=== PATIENT | male | born 1965 | race Caucasian/White ===

== ENCOUNTER 2017-12-12 20:33 | Emergency (ER) | payer BC ==
--- NOTE | 2017-12-12 21:01 | EDPHY ---
H & P Time Seen by Provider: 12/12/17 21:01 HPI/ROS: CHIEF COMPLAINT: Dizziness and vertigo HISTORY OF PRESENT ILLNESS: Patient had symptoms starting 11:00 a.m. Today at breakfast. He woke up and felt okay, but 11:00 a.m. He started getting severe dizziness which he describes as "the room was moving" even when he was still. Associated with severe nausea and vomiting. Not associated with headache or double vision or weakness or numbness in extremities or confusion or difficulty with speech. Symptoms are still present now, he went to urgent care and was sent here because of concern for elevated white blood cell count and bilirubin. REVIEW OF SYSTEMS: Eye: no change in vision ENT: no sore throat or earache or ringing in his ears Cardiac: no chest pain or syncope Pulmonary: no cough or SOB Abdomen: No abdominal pain or diarrhea Musculoskeletal: no back pain or neck pain Skin: no rash Neuro: No headache, see HPI Constitutional: no fever : no urinary symptoms A comprehensive 10 point review of systems is otherwise negative aside from elements mentioned in the history of present illness. PAST MEDICAL HISTORY: Hypertension and polycystic kidney disease Social history: Works in the [employer] General Appearance: Alert and conversant, cooperative. Eyes: No scleral icterus. Pupils equal reactive extraocular motion intact, with head turning to the right he has nystagmus. This also reproduces his symptoms. ENT, Mouth: Normal mucous membranes. Normal tympanic membranes bilaterally. Respiratory: Normal respiratory effort, breath sounds equal, lungs are clear to auscultation. Cardiovascular: Regular rate and rhythm. Gastrointestinal: Abdomen is soft and non tender. Neurological: Alert, face symmetric, normal motor and sensory in extremities. Fluent speech, can lift each leg off the bed for a count of 10, normal finger-to -nose bilaterally, no pronator drift. Skin: Warm and dry, no rashes. Musculoskeletal: No peripheral edema. Psychiatric: Not agitated. Emergency Department course/MDM: Patient presents with clinical impression of peripheral vertigo. He has sudden onset with nausea and vomiting which is worse with turning his head to the right , he does have nystagmus in turning his head to the right reproduces his symptoms. He has a normal neurologic exam here. His lab from urgent care reviewed white blood cell count of 12 and a conjugated bilirubin of 2.1. I think these are probably not represent of an acute emergent medical condition at this time. Patient was treated with IV fluids at urgent care, still is quite symptomatic. Oral meclizine 25 and Zofran 4 mg IV, IV normal saline 1 L. Repeat chemistry panel. 2215: Repeat oral meclizine 25mg, still can't sit up in bed or walk. He was apparently at urgent care for 4 hr getting treated. At this point will admit him overnight for symptomatic treatment. Smoking Status: Never smoked Constitutional: Initial Vital Signs Temperature (C) 36.6 C 12/12/17 20:40 Heart Rate 86 12/12/17 20:40 Respiratory Rate 20 12/12/17 20:40 Blood Pressure 158/94 H 12/12/17 20:40 O2 Sat (%) 96 12/12/17 20:40 O2 Delivery Mode Room Air Allergies/Adverse Reactions: No Known Allergies Allergy (Unverified 12/12/17 20:39) Medical Decision Making Differential Diagnosis: Differential diagnosis considered for dizziness including but not limited to peripheral and central causes of vertigo, orthostatic causes including dehydration, and blood loss. My clinical impression is that vertebrobasilar dissection or insufficiency, cerebellar stroke, are unlikely. Consult/Admit Bed Type: [facility] 2021 - Data Points Laboratory Results: Laboratory Results 12/12/17 20:25 12/12/17 20:25 Sodium 138 mEq/L mEq/L (135-145) Potassium 3.9 mEq/L mEq/L (3.3-5.0) Chloride 105 mEq/L mEq/L (97-110) Carbon Dioxide 21 mEq/l L mEq/l (22-31) Anion Gap 12 mEq/L mEq/L (8-16) BUN 21 mg/dL mg/dL (7-23) Creatinine 1.1 mg/dL mg/dL (0.7-1.3) Estimated GFR > 60 Glucose 147 mg/dL H mg/dL (70-100) Calcium 9.2 mg/dL mg/dL (8.5-10.4) Medications Given: Discontinued Medications Sodium Chloride (Ns) 1,000 mls @ 0 mls/hr IV EDNOW ONE; Wide Open PRN Reason: Protocol Stop: 12/12/17 21:14 Last Admin: 12/12/17 21:23 Dose: 1,000 mls Sodium Chloride (Ns) 1,000 mls @ 0 mls/hr IV EDNOW ONE; Wide Open PRN Reason: Protocol Stop: 12/12/17 21:14 Last Admin: 12/12/17 21:23 Dose: 1,000 mls Meclizine HCl (Meclizine Hcl) 25 mg PO EDNOW ONE Stop: 12/12/17 21:14 Last Admin: 12/12/17 21:22 Dose: 25 mg Meclizine HCl (Meclizine Hcl) 25 mg PO EDNOW ONE Stop: 12/12/17 22:19 Last Admin: 12/12/17 22:19 Dose: Not Given Meclizine HCl (Meclizine Hcl) 25 mg PO EDNOW ONE Stop: 12/12/17 22:19 Last Admin: 12/12/17 22:19 Dose: 25 mg Ondansetron HCl (Zofran) 4 mg IVP EDNOW ONE Stop: 12/12/17 21:35 Last Admin: 12/12/17 21:37 Dose: 4 mg Departure - Departure Disposition: [facility] Acute Clinical Impression: Vertigo Condition: Good
[2017-12-12] MEDS ORDERED: MECLIZINE HCL 25 MG TAB PO ONE ×3 (21:13→22:18)
[2017-12-12] MEDS ORDERED: NS 1,000 ML IV ONE ×2 (21:13)
[2017-12-12] MEDS ORDERED: ONDANSETRON 4 MG/2 ML VIAL IVP ONE (21:34)
[2017-12-12] MEDS ORDERED: MECLIZINE HCL 25 MG TAB ONE (22:17)
[2017-12-12] MEDS ORDERED: ONDANSETRON 4 MG/2 ML VIAL IVP PRN (22:25)
[2017-12-12] MEDS ORDERED: PROMETHAZINE HCL 25 MG/ML INJ IVP PRN (22:25)
[2017-12-12] MEDS ORDERED: ONDANSETRON DISINTEGRATING 4 MG TAB PO PRN (22:25)
[2017-12-12] MEDS ORDERED: ACETAMINOPHEN 325 MG TAB PO PRN (22:25)
[2017-12-12] MEDS ORDERED: MECLIZINE HCL 25 MG TAB PO PRN (22:27)
[2017-12-12] MEDS ORDERED: DIAZEPAM 5 MG TAB PO PRN (22:27)
[2017-12-12] MEDS ORDERED: NS 1,000 ML IV SCH (22:30)
[2017-12-12 23:29] VITALS: BP 148/94
[2017-12-13] MEDS ORDERED: ENOXAPARIN 40 MG/0.4 ML SYR SC SCH (09:00)
== END 2017-12-12 23:31 | disposition still patient (30) ==
LOC: UNDOADMOB 22:22 → UNDODISOB 23:12
DX: R42 Dizziness and giddiness (principal); E86.9 Volume depletion, unspecified
CPT/HCPCS: 96374; J1650; J2405